=== PATIENT | female | born 1995 | race Caucasian/White ===

== ENCOUNTER 2017-09-21 09:07 | Emergency (ER) | payer OTHER ==
[2017-09-21 10:11] LABS: Basophils % (A) 0 %; Eosinophils % (A) 1 %; HCT 36.5 % (34.0-46.0); HGB 12.4 gm/dL (11.4-16.0); Lymphocytes # (A) 1.3 k/uL (1.0-4.8); Lymphocytes % (A) 17 %; MCH 29.1 pg (25.0-35.0); MCV 85.4 fL (80.0-100.0); Mean Platelet Volume 7.5; Monocytes # (A) 0.4 k/uL (0-1.0); Monocytes % (A) 5 %; Neutrophils # (A) 5.8 k/uL (1.3-7.7); Neutrophils % (A) 76 %; Platelet Count 185 k/uL (150-450); RBC 4.28 m/uL (3.80-5.40); RDW 12.4 % (11.5-15.5); WBC 7.6 k/uL (3.8-10.6)
--- NOTE | 2017-09-21 10:14 | ED ---
General Adult HPI - General Chief complaint: Vaginal Bleeding Stated complaint: 6wks preg, bleeding/cramping Time Seen by Provider: 09/21/17 09:44 Source: patient, RN notes reviewed Mode of arrival: ambulatory Limitations: no limitations - History of Present Illness Initial comments: Patient 22-year-old female who is approximately 6 weeks by last menstrual cycle presents emergency room today with chief complaint of vaginal spotting and lower abdominal cramping. She states symptoms started last night. Since mild spotting. States currently not spotting at this time. Does have some cramping lower abdomen. Denies any other complaints or symptoms. She is G1, P0. Patient denies any recent fever, chills, shortness of breath, chest pain , back pain, nausea or vomiting, numbness or tingling, dysuria or hematuria, constipation or diarrhea, headaches or visual changes, or any other complaints. - Related Data Home Medications Medication Instructions Recorded Confirmed Hju-Gnpc-Jwjnj Acid 1 cap PO DAILY 09/21/17 09/21/17 [-U Capsule (formulary)] Allergies Allergy/AdvReac Type Severity Reaction Status Date / Time No Known Allergies Allergy Verified 09/21/17 09:56 Review of Systems ROS Statement: Those systems with pertinent positive or pertinent negative responses have been documented in the HPI. ROS Other: All systems not noted in ROS Statement are negative. Past Medical History Past Medical History: No Reported History History of Any Multi-Drug Resistant Organisms: None Reported Past Surgical History: No Surgical Hx Reported Past Psychological History: No Psychological Hx Reported Smoking Status: Never smoker Past Alcohol Use History: Occasional Past Drug Use History: None Reported General Exam - General Exam Comments Initial Comments: General: The patient is awake and alert, in no distress, and does not appear acutely ill. Eye: Pupils are equal, round and reactive to light, extra-ocular movements are intact. No nystagmus. There is normal conjunctiva bilaterally. No signs of icterus. Ears, nose, mouth and throat: There are moist mucous membranes and no oral lesions. Neck: The neck is supple, there is no tenderness or JVD. Cardiovascular: There is a regular rate and rhythm. No murmur, rub or gallop is appreciated. Respiratory: Lungs are clear to auscultation, respirations are non-labored, breath sounds are equal. No wheezes, stridor, rales, or rhonchi. Gastrointestinal: Soft, non-distended, non-tender abdomen without masses or organomegaly noted. There is no rebound or guarding present. No CVA tenderness. Musculoskeletal: Normal ROM, no tenderness. Strength 5/5. Sensation intact. Pulses equal bilaterally 2+. Neurological: A&O x 3. CN II-XII intact, There are no obvious motor or sensory deficits. Coordination appears grossly intact. Speech is normal. Skin: Skin is warm and dry and no rashes or lesions are noted. Psychiatric: Cooperative, appropriate mood & affect, normal judgment. Limitations: no limitations Course Vital Signs 09/21/17 09:10 Temperature 100.0 F H Pulse Rate 103 H Respiratory 20 Rate Blood Pressure 122/72 O2 Sat by Pulse 99 Oximetry Medical Decision Making - Medical Decision Making Patient reexamined at this time shows no signs of distress. Repeat temperature is 98.7F. Patient ultrasound shows possible early intrauterine but no pole seen. Small subchorionic bleed. Patient labs been reviewed and are negative. Patient's beta hCG 14,000. Rh-. We'll give this been ordered and will be given to the patient. Was discussed with patient about early versus possible threatened miscarriage at this time. Advised patient to have repeat beta hCG in 2 days following up with her [employer] Dr. Gaffney. Advised return if any symptoms increase worsen. She states understanding and is in agreement. - Lab Data Result diagrams: 09/21/17 09:56 09/21/17 09:56 Lab Results 09/21/17 09/21/17 09/21/17 Range/Units 09:56 09:56 09:56 WBC 7.6 (3.8-10.6) k/uL RBC 4.28 (3.80-5.40) m/uL Hgb 12.4 (11.4-16.0) gm/dL Hct 36.5 (34.0-46.0) % MCV 85.4 (80.0-100.0) fL MCH 29.1 (25.0-35.0) pg MCHC 34.0 (31.0-37.0) g/dL RDW 12.4 (11.5-15.5) % Plt Count 185 (150-450) k/uL Neutrophils % 76 % Lymphocytes % 17 % Monocytes % 5 % Eosinophils % 1 % Basophils % 0 % Neutrophils # 5.8 (1.3-7.7) k/uL Lymphocytes # 1.3 (1.0-4.8) k/uL Monocytes # 0.4 (0-1.0) k/uL Eosinophils # 0.0 (0-0.7) k/uL Basophils # 0.0 (0-0.2) k/uL Sodium 140 (137-145) mmol/L Potassium 4.1 (3.5-5.1) mmol/L Chloride 106 (98-107) mmol/L Carbon Dioxide 21 L (22-30) mmol/L Anion Gap 13 mmol/L BUN 7 (7-17) mg/dL Creatinine 0.54 (0.52-1.04) mg/dL Est GFR (CKD-EPI)AfAm >90 (>60 ml/min/1.73 sqM) Est GFR (CKD-EPI)NonAf >90 (>60 ml/min/1.73 sqM) Glucose 88 (74-99) mg/dL Calcium 9.2 (8.4-10.2) mg/dL Total Bilirubin 0.5 (0.2-1.3) mg/dL AST 21 (14-36) U/L ALT 33 (9-52) U/L Alkaline Phosphatase 61 (38-126) U/L Total Protein 6.6 (6.3-8.2) g/dL Albumin 4.1 (3.5-5.0) g/dL HCG, Quant 48652.0 mIU/mL Urine Color Urine Appearance (Clear) Urine pH (5.0-8.0) Ur Specific [place] (1.001-1.035) Urine Protein (Negative) Urine Glucose (UA) (Negative) Urine Ketones (Negative) Urine Blood (Negative) Urine Nitrite (Negative) Urine Bilirubin (Negative) Urine Urobilinogen (<2.0) mg/dL Ur Leukocyte Esterase (Negative) Urine RBC (0-5) /hpf Urine WBC (0-5) /hpf Ur Squamous Epith Cells (0-4) /hpf Amorphous Sediment (None) /hpf Urine Mucus (None) /hpf Urine Sperm (None) /hpf Blood Type O Negative Blood Type Recheck No 09/21/17 Range/Units 09:56 WBC (3.8-10.6) k/uL RBC (3.80-5.40) m/uL Hgb (11.4-16.0) gm/dL Hct (34.0-46.0) % MCV (80.0-100.0) fL MCH (25.0-35.0) pg MCHC (31.0-37.0) g/dL RDW (11.5-15.5) % Plt Count (150-450) k/uL Neutrophils % % Lymphocytes % % Monocytes % % Eosinophils % % Basophils % % Neutrophils # (1.3-7.7) k/uL Lymphocytes # (1.0-4.8) k/uL Monocytes # (0-1.0) k/uL Eosinophils # (0-0.7) k/uL Basophils # (0-0.2) k/uL Sodium (137-145) mmol/L Potassium (3.5-5.1) mmol/L Chloride (98-107) mmol/L Carbon Dioxide (22-30) mmol/L Anion Gap mmol/L BUN (7-17) mg/dL Creatinine (0.52-1.04) mg/dL Est GFR (CKD-EPI)AfAm (>60 ml/min/1.73 sqM) Est GFR (CKD-EPI)NonAf (>60 ml/min/1.73 sqM) Glucose (74-99) mg/dL Calcium (8.4-10.2) mg/dL Total Bilirubin (0.2-1.3) mg/dL AST (14-36) U/L ALT (9-52) U/L Alkaline Phosphatase (38-126) U/L Total Protein (6.3-8.2) g/dL Albumin (3.5-5.0) g/dL HCG, Quant mIU/mL Urine Color Yellow Urine Appearance Cloudy H (Clear) Urine pH 8.0 (5.0-8.0) Ur Specific [place] 1.018 (1.001-1.035) Urine Protein Trace H (Negative) Urine Glucose (UA) Negative (Negative) Urine Ketones 2+ H (Negative) Urine Blood Moderate H (Negative) Urine Nitrite Negative (Negative) Urine Bilirubin Negative (Negative) Urine Urobilinogen <2.0 (<2.0) mg/dL Ur Leukocyte Esterase Negative (Negative) Urine RBC 1 (0-5) /hpf Urine WBC 1 (0-5) /hpf Ur Squamous Epith Cells 4 (0-4) /hpf Amorphous Sediment Rare H (None) /hpf Urine Mucus Rare H (None) /hpf Urine Sperm Rare (None) /hpf Blood Type Blood Type Recheck Disposition Clinical Impression: Threatened Disposition: HOME SELF-CARE Condition: Good Instructions: Threatened Miscarriage (ED) Additional Instructions: Please use medication as discussed. Please follow-up with family doctor in the next 2 days of symptoms have not improved. Please return to emergency room if the symptoms increase or worsen or for any other concerns. Referrals: Nonstaff,Physician [REFERRING] - 1-2 days Ivy Gaffney DO [Doctor of Osteopathic Medicine] - 1-2 days Time of Disposition: 11:29
[2017-09-21 10:22] LABS: ALT 33 U/L (9-52); AST 21 U/L (14-36); Albumin 4.1 g/dL (3.5-5.0); Alkaline Phosphatase 61 U/L (38-126); Anion Gap 13 mmol/L; Blood Urea Nitrogen 7 mg/dL (7-17); Calcium 9.2 mg/dL (8.4-10.2); Carbon Dioxide 21 mmol/L (22-30); Chloride 106 mmol/L (98-107); Glucose 88 mg/dL (74-99); Potassium 4.1 mmol/L (3.5-5.1); Sodium 140 mmol/L (137-145); Total Bilirubin 0.5 mg/dL (0.2-1.3); Total Protein 6.6 g/dL (6.3-8.2)
[2017-09-21 10:29] LABS: Amorphous Sediment,Urine Rare /hpf; Appearance,Urine Cloudy (Clear); Bilirubin,Urine Negative (Negative); Blood,Urine Moderate (Negative); Color,Urine Yellow; Glucose,Urine (UA) Negative (Negative); Ketones,Urine 2+ (Negative); Leukocyte Esterase,Urine Negative (Negative); Mucus,Urine Rare /hpf; Nitrite,Urine Negative (Negative); Protein,Urine Trace (Negative); RBC,Urine 1 /hpf (0-5); Specific Gravity,Urine 1.018 (1.001-1.035); Sperm,Urine Rare /hpf; Squamous Epithelial Cell,Urine 4 /hpf (0-4); Urobilinogen,Urine <2.0 mg/dL (<2.0); WBC,Urine 1 /hpf (0-5)
--- NOTE | 2017-09-21 10:50 | US ---
EXAMINATION TYPE: US OB <=14 wks transvag DATE OF EXAM: 09/21/2017 COMPARISON: NONE CLINICAL HISTORY: Pain. bleeding last night , positive home test. EXAM PERFORMED: Transvaginal (TV) and Transabdominal (TA) EXAM MEASUREMENTS: GESTATIONAL AGE / DATING Physician Established: not established Dates by LMP: (5 weeks/4 days) EDC: 05/20/2018 Dates by First Scan: No previous this is first scan Dates by Current Scan for: only gestational sac and yolk sac seen EDC: 05/21/2018 by gestational sac measurement only MATERNAL ANATOMY Uterus: 7.8 x 4.8 x 6.2cm Right Ovary: 3.9 x 1.9 x 3.7 cm Left Ovary: 4.1 x 2.3 x 3.8 cm Post CDS / Adnexa: trace free fluid Presence of subchorionic bleed: hypoechoic area adjacent to sac measures 1.7 x 0.5 x 2.2 cm GESTATION / SURVEY CRL: not identified, could be to early MSD: 1.3 cm (5 weeks/3 days) Yolk Sac (normal less than 6mm): 0.3 cm Date of LMP: 08/13/2017 Beta HcG (if available): not available at time of exam Appears as normal early developing IUP too early to see pole. IMPRESSION: Findings may reflect normal early intrauterine . Serial beta hCG and/or ultrasound is advise dAmanda
[2017-09-21] MEDS ORDERED: Rhogam IMMUNE GLOBULIN 1,500 UNIT/1 ML IM ONE (11:06)
[2017-09-21 11:44] VITALS: BP 111/59; PULSE 76; RESP 16; TEMP 97.8
== END 2017-09-21 12:03 | disposition home or self-care (01) ==
LOC: EC 09:07
DX: O20.0 Threatened abortion (principal); Z3A.01 Less than 8 weeks gestation of pregnancy
CPT/HCPCS: 36415; 86900; 86901; 80053; 85025; 86850; 81001; 84702; 87086; 76801; 76817; 99284; 96372; J2791

== ENCOUNTER → 2017-09-23 | Outpatient (CLI) | payer OTHER | END | disposition home or self-care (01) | LOC: LABWHC1 11:54 | PROVIDERS: ATTEND Physician Assistant | DX: O20.0 Threatened abortion (principal); Z3A.00 Weeks of gestation of pregnancy not specified | CPT/HCPCS: 36415; 84702 ==

== ENCOUNTER → 2017-09-25 | Outpatient (CLI) | payer OTHER | LOC: LABWHC1 09:47 | PROVIDERS: ATTEND Obstetrics & Gynecology | DX: O20.0 Threatened abortion (principal); Z3A.00 Weeks of gestation of pregnancy not specified | CPT/HCPCS: 36415; 84702 ==

== ENCOUNTER 2018-05-21 11:23 | Outpatient (CLI) | payer OTHER ==
[2018-05-21 13:23] VITALS: BP 142/87; PULSE 93; RESP 18; TEMP 97
--- NOTE | 2018-06-03 14:05 | P.MSEPDOC ---
Presenting Problems - Arrival Data Date of Arrival on Unit: 05/21/18 Time of Arrival on Unit: 11:23 Mode of Transport: Ambulatory Vital Signs - Temperature Temperature: 97.0 F Temperature Source: Temporal Artery Scan - Pulse Right Pulse Oximetery Pulse Rate: 93 Pulse Assessment Method: Pulse Oximetry - Respirations Respiratory Rate: 18 Oxygen Delivery Method: Room Air O2 Sat by Pulse Oximetry: 98 - Blood Pressure Right Arm Blood Pressure: 142/87 Blood Pressure Mean: 105 Blood Pressure Source: Automatic Cuff - Comment Vital Signs Comment: repeat BP 124/82 Medical Screen Scoring (Post) - Cervical Exam Dilation: 1-3 cm = 1 Membranes: Intact - Uterine Contractions Frequency: > or = 36 weeks =2 Duration: > 40 seconds = 2 Intensity: N/A - Maternal Vital Signs Maternal Temperature: N/A Maternal Blood Pressure: N/A Signs of Preeclampsia: N/A Maternal Respirations: N/A - Pain Assessment Pain Location and Character: Abdomen Pain Scale Used: Numeric (1 - 10) Pain Intensity: 6 Pain Management Goal: 2 Pain Description: *Acute, Cramping Pain Radiation Location: none Pain Frequency: Intermittent Pain Duration: 12 Pain Duration Units: Hours Pain Behavior: Vocalization Effects of Pain: none Pain Aggravating Factors: None Pharmacological Interventions: Discuss Pain Med Options - Maternal Trauma Maternal Trauma: N/A - Assessment Heart Rate: 145 Heart Rate - NICHD Category: Category I (Normal) = 0 NST: Reactive Position: N/A Station: N/A - Total Score Total Score (Post): 5 - Post Treatment Level of Risk Post Treatment Level of Risk: Low (0-5) Physician Notification (Post) - Physician Notified Physician Notified Date: 05/21/18 Physician Notified Time: 12:06 Physician/Practitioner Notified:: Dr Gaffney Spoke With: Dr Gaffney New Order Received: Yes - Notification Comment Comment: pt here for rule out ROM and contractions, amnisure negative, cervix 1 , 50%, high and the same after one hour. Disposition - Disposition Discharge Date: 05/21/18 Discharge Time: 13:15 I agree with the RN Medical Screening Exam: Yes Risk & Benefit of care provided described in d/c instruction: Yes Diagnosis: FALSE LABOR AT OR AFTER 37 COMPLETED WEEKS OF GESTATION
== END 2018-05-21 13:15 | disposition home or self-care (01) ==
LOC: FBPOP 11:23
PROVIDERS: ATTEND Obstetrics & Gynecology
DX: O47.1 False labor at or after 37 completed weeks of gestation (principal); Z3A.00 Weeks of gestation of pregnancy not specified
CPT/HCPCS: 59025; 99213

== ENCOUNTER 2018-05-22 06:52 | Outpatient (CLI) | payer OTHER ==
[2018-05-22 09:14] VITALS: BP 131/85; PULSE 92; RESP 18; TEMP 97.3
--- NOTE | 2018-05-22 12:48 | P.MSEPDOC ---
Presenting Problems - Arrival Data Date of Arrival on Unit: 05/22/18 Time of Arrival on Unit: 06:52 Mode of Transport: Ambulatory - Complaint OB-Reason for Admission/Chief Complaint: Possible Onset of Labor Comment: contractions began yesterday at 1am, pt was here yesterday for rule out labor, pt states the contractions have increased in intensity since then. Medical History - Information : 1 Para: 0 Term: 0 : 0 Abortions: Spontaneous or Elective: 0 Number of Living Children: 0 - Gestational Age Gestational Age by NEREYDA (wks/days): 40 Weeks and 2 Days - History Complications: GBS+ Review of Systems - Review of Systems Constitutional: No problems Breast: No problems ENT: No problems Cardiovascular: No problems Respiratory: No problems Gastrointestinal: No problems Genitourinary: No problems Musculoskeletal: No problems Neurological: No problems Skin: No problems Vital Signs - Temperature Temperature: 97.3 F Temperature Source: Temporal Artery Scan - Pulse Right Pulse Oximetery Pulse Rate: 92 Pulse Assessment Method: Pulse Oximetry - Respirations Respiratory Rate: 18 Oxygen Delivery Method: Room Air O2 Sat by Pulse Oximetry: 96 - Blood Pressure Right Arm Blood Pressure: 131/85 Blood Pressure Mean: 100 Blood Pressure Source: Automatic Cuff Medical Screen Scoring (Pre) - Cervical Exam Dilation: 1-3 cm = 1 Effacement: More than 50% = 2 Membranes: Intact - Uterine Contractions Frequency: > or = 36 weeks =2 Duration: > 40 seconds = 2 Intensity: N/A - Maternal Vital Signs Maternal Temperature: N/A Maternal Blood Pressure: N/A Signs of Preeclampsia: N/A Maternal Respirations: N/A - Pain Assessment Pain Location and Character: Abdomen Pain Scale Used: Numeric (1 - 10) Pain Intensity: 8 Pain Management Goal: 2 Pain Description: *Acute, Cramping Pain Radiation Location: none Pain Frequency: Intermittent Pain Duration: 1 Pain Duration Units: Days Pain Behavior: Facial Grimacing, Vocalization Effects of Pain: none Pain Aggravating Factors: None Pharmacological Interventions: Discuss Pain Med Options Non-Pharmacological Interventions: Reduce Environmental Stimuli - Maternal Trauma Maternal Trauma: N/A - Assessment Baseline FHR: 135 Heart Rate - NICHD Category: Category I (Normal) = 0 NST: Reactive Position: N/A Station: N/A - Total Score Total Score (Pre): 7 - Level of Risk Level of Risk: Medium (6-9) Physician Notification (Pre) - Physician Notified Physician Notified Date: 05/22/18 Physician Notified Time: 08:04 Physician/Practitioner Notifed:: Dr Gaffney Spoke With: Dr Gaffney New Order Received: Yes - Notification Comment Comment: Pt here for rule out labor, cervix 2, 80, -2, same after one hour and again after two hours. pt instructed to return when contractions become stronger , closer, or if water breaks, decrease in movement etc. Disposition - Disposition OB Disposition: Discharge to home Discharge Date: 05/22/18 Discharge Time: 09:10 I agree with the RN Medical Screening Exam: Yes Risk & Benefit of care provided described in d/c instruction: Yes Diagnosis: FALSE LABOR AT OR AFTER 37 COMPLETED WEEKS OF GESTATION
== END 2018-05-22 09:10 | disposition home or self-care (01) ==
LOC: FBPOP 06:52
PROVIDERS: ATTEND Obstetrics & Gynecology
DX: O47.1 False labor at or after 37 completed weeks of gestation (principal); Z3A.40 40 weeks gestation of pregnancy
CPT/HCPCS: 59025; 99213

== ENCOUNTER 2018-05-22 23:15 | Inpatient (IN) | payer OTHER ==
[2018-05-22 23:47] VITALS: RESP 16
[2018-05-23] MEDS ORDERED: LIDOCAINE 0.5% (PF) 5 MG/ML (50 ML SDV) SQ PRN (00:43)
[2018-05-23] MEDS ORDERED: TERBUTALINE 1 MG/ML VIAL SQ PRN (00:43)
[2018-05-23] MEDS ORDERED: METHYLERGONOVINE 0.2 MG/ML 1 ML AMP IM PRN (00:43)
[2018-05-23] MEDS ORDERED: OXYTOCIN 10 UNIT/ML 1 ML VIAL IM PRN (00:43)
[2018-05-23] MEDS ORDERED: CARBOPROST TROMETHAMINE 250 MCG/ML 1 ML AMP IM PRN (00:43)
[2018-05-23] MEDS ORDERED: LACTATED RINGERS 1,000 ML IV SCH (00:45)
[2018-05-23] MEDS ORDERED: OXYTOCIN 20 UNITS/1000 ML NS 1,000 ML IV SCH ×2 (00:45→12:45)
[2018-05-23] MEDS ORDERED: AMPICILLIN 2,000 MG in SODIUM CHLORIDE 0.9% 100 ML IVPB STA (01:04)
[2018-05-23 01:13] LABS: Basophils % (A) 0 %; Eosinophils % (A) 0 %; HCT 36.3 % (34.0-46.0); HGB 12.6 gm/dL (11.4-16.0); Lymphocytes # (A) 1.2 k/uL (1.0-4.8); Lymphocytes % (A) 9 %; MCH 31.3 pg (25.0-35.0); MCHC 34.8 g/dL (31.0-37.0); MCV 89.9 fL (80.0-100.0); Mean Platelet Volume 7.6; Monocytes # (A) 0.4 k/uL (0-1.0); Monocytes % (A) 3 %; Neutrophils # (A) 11.6 k/uL (1.3-7.7); Neutrophils % (A) 86 %; Platelet Count 172 k/uL (150-450); RBC 4.04 m/uL (3.80-5.40); RDW 13.6 % (11.5-15.5); WBC 13.4 k/uL (3.8-10.6)
[2018-05-23] MEDS ORDERED: ROPIVACAINE 5MG/ML 20ML VIAL ONE (01:21)
[2018-05-23] MEDS ORDERED: SODIUM CHLORIDE 0.9% 100 ML BAG ONE (01:21)
[2018-05-23] MEDS ORDERED: fentaNYL (PF) 50 MCG/ML 5 ML AMP ONE (01:21)
[2018-05-23] MEDS: LACTATED RINGERS 1,000 ML IV SCH ×2 (01:41→04:23)
[2018-05-23 01:52] VITALS: BMI 33.0
--- NOTE | 2018-05-23 04:28 | P.HPOB ---
History of Present Illness H&P Date: 05/23/18 Chief Complaint: Contractions This is a 23-year-old female 1 para 0 with an estimated date of confinement of 05/20/2018, estimated gestational age of 40-3/7 weeks, who presents to labor and delivery with complaints of contractions that began 2 days ago but became stronger enough and regular enough to come in this evening. She denied any rupture of membranes. She had been in triage twice before and didn't make any change beyond 2 cm. Upon arrival she was noted to be 3 cm. course has been uncomplicated. labs: Hepatitis B surface antigen-negative RPR-nonreactive Rubella-immune Blood type-O- HIV-nonreactive Hemoglobin-12.6 Toxoplasma-negative Random glucose-80 Obstetrical ultrasound-normal anatomy Group B streptococcus-positive Obstetrical history: Gynecologic history: No history of sexual transmitted diseases. 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 Review of Systems Constitutional: Denies chills, Denies fever Eyes: denies blurred vision, denies pain Ears, nose, mouth and throat: Denies headache, Denies sore throat Cardiovascular: Denies chest pain, Denies shortness of breath Respiratory: Denies cough Gastrointestinal: Reports abdominal pain (Contractions) Genitourinary: Reports pelvic pain, Reports Musculoskeletal: Reports low back pain Integumentary: Denies pruritus, Denies rash Neurological: Denies numbness, Denies weakness Psychiatric: Denies anxiety, Denies depression Past Medical History Past Medical History: No Reported History History of Any Multi-Drug Resistant Organisms: None Reported Past Surgical History: No Surgical Hx Reported Past Anesthesia/Blood Transfusion Reactions: No Reported Reaction Past Psychological History: No Psychological Hx Reported Smoking Status: Never smoker Past Alcohol Use History: Occasional Past Drug Use History: None Reported - Past Family History Father Family Medical History: No Reported History Medications and Allergies Home Medications Medication Instructions Recorded Confirmed Type Vvs-Dall-Gbsek Acid 1 cap PO DAILY 09/21/17 05/22/18 History [-U Capsule (formulary)] Allergies Allergy/AdvReac Type Severity Reaction Status Date / Time No Known Allergies Allergy Verified 05/22/18 23:16 Exam Osteopathic Statement: *. No significant issues noted on an osteopathic structural exam other than those noted in the History and Physical/Consult. Vital Signs Temp Pulse Resp BP 05/23/18 01:48 97.8 F 82 16 110/64 05/22/18 23:17 97.7 F 85 16 131/87 Intake and Output 05/22/18 05/22/18 05/23/18 14:59 22:59 06:59 Other: Weight 92.986 kg HEENT: Within normal limits Heart: Regular rate and rhythm Lungs: Clear to auscultation bilaterally Abdomen: Cervix: Currently is 6 cm/90%/-1 station. Artificial rupture of membranes is carried out with thin meconium noted. heart tones: Reactive Contractions: Every 4-5 minutes Extremities: Negative Homans Results Result Diagrams: 05/23/18 01:02 Abnormal Lab Results - Last 24 Hours (Table) 05/23/18 Range/Units 01:02 WBC 13.4 H (3.8-10.6) k/uL Neutrophils # 11.6 H (1.3-7.7) k/uL Assessment and Plan (1) 40 weeks gestation of Current Visit: Yes Status: Acute Code(s): Z3A.40 - 40 WEEKS GESTATION OF SNOMED Code(s): 98089115 (2) Meconium in amniotic fluid Current Visit: Yes Status: Acute Code(s): P96.83 - MECONIUM STAINING SNOMED Code(s): 244508735 (3) Group B Streptococcus carrier, +RV culture, currently Current Visit: Yes Status: Acute Code(s): O99.820 - STREPTOCOCCUS B CARRIER STATE COMPLICATING SNOMED Code(s): 6658825335342 Plan: Admission for active labor. Antibiotic prophylaxis for group B streptococcus. Epidural anesthesia. Expectant management.
--- NOTE | 2018-05-23 04:32 | P.MSEPDOC ---
Presenting Problems - Arrival Data Date of Arrival on Unit: 05/23/18 Time of Arrival on Unit: 00:40 Mode of Transport: Ambulatory - Complaint OB-Reason for Admission/Chief Complaint: Possible Onset of Labor Comment: ctx for 2 days Medical History - Information : 1 Para: 0 Term: 0 : 0 Abortions: Spontaneous or Elective: 0 Number of Living Children: 0 - Gestational Age Gestational Age by NEREYDA (wks/days): 40 Weeks and 3 Days - History Complications: GBS+ Review of Systems - Review of Systems Constitutional: No problems Breast: No problems ENT: No problems Cardiovascular: No problems Respiratory: No problems Gastrointestinal: No problems Genitourinary: No problems Musculoskeletal: No problems Neurological: No problems Skin: No problems Vital Signs - Temperature Temperature: 97.8 F Temperature Source: Temporal Artery Scan - Pulse Right Brachial Pulse Rate: 82 Pulse Assessment Method: Automatic Cuff - Respirations Respiratory Rate: 16 Oxygen Delivery Method: Room Air - Blood Pressure Right Arm Blood Pressure: 110/64 Blood Pressure Mean: 79 Blood Pressure Source: Automatic Cuff Medical Screen Scoring (Pre) - Cervical Exam Dilation: 1-3 cm = 1 Effacement: More than 50% = 2 Membranes: Intact - Uterine Contractions Frequency: > 5 minutes apart = 1 Duration: > 40 seconds = 2 - Pain Assessment Pain Location and Character: Abdomen Pain Scale Used: Numeric (1 - 10) Pain Intensity: 9 Pain Description: *Acute, Tightness Pain Frequency: Intermittent Pain Duration: 6 Pain Duration Units: Hours Pain Behavior: None Exhibited Pain Aggravating Factors: Contractions Non-Pharmacological Interventions: Position/Reposition, Reduce Environmental Stimuli - Assessment Baseline FHR: 125 Heart Rate - NICHD Category: Category II (Indeterminate) = 3 NST: Reactive - Total Score Total Score (Pre): 9 - Level of Risk Level of Risk: Medium (6-9) Physician Notification (Post) - Physician Notified Physician Notified Date: 05/23/18 Physician Notified Time: 00:42 Spoke With: Gulshan Martins Order Received: Yes (admit for labor, ampicillin, epidural) Disposition - Disposition OB Disposition: Admit, LDRP Suite I agree with the RN Medical Screening Exam: Yes Risk & Benefit of care provided described in d/c instruction: Yes Diagnosis: ENCOUNTER FOR FULL-TERM UNCOMPLICATED DELIVERY
[2018-05-23] MEDS: AMPICILLIN 1,000 MG in SODIUM CHLORIDE 0.9% 50 ML IVPB SCH ×3 (05:20→12:43)
[2018-05-23] MEDS ORDERED: LANOLIN CREAM 5 GM TUBE TOPICAL PRN (12:43)
[2018-05-23] MEDS ORDERED: HYDROCORTISONE 2.5% RECTAL CREAM 30 GM TUBE RECTAL PRN (12:43)
[2018-05-23] MEDS ORDERED: SIMETHICONE 80 MG CHEWABLE PO PRN (12:43)
[2018-05-23] MEDS ORDERED: diphenhydrAMINE 25 MG CAP PO PRN (12:43)
[2018-05-23] MEDS ORDERED: IBUPROFEN 600 MG TAB PO PRN (12:43)
[2018-05-23] MEDS ORDERED: WITCH HAZEL 1 EACH MED..PAD TOPICAL PRN (12:43)
[2018-05-23] MEDS ORDERED: diphenhydrAMINE 50 MG/ML 1 ML VIAL IVP PRN ×2 (12:43)
[2018-05-23] MEDS ORDERED: ZOLPIDEM 5 MG TAB PO PRN (12:43)
[2018-05-23] MEDS ORDERED: diphenhydrAMINE 50 MG CAP PO PRN (12:43)
[2018-05-23] MEDS ORDERED: BENZOCAINE/MENTHOL SPRAY 1 GM/SPRAY AEROSOL TOPICAL PRN (12:43)
[2018-05-23] MEDS ORDERED: ACETAMINOPHEN TAB 325 MG TAB PO PRN (12:43)
--- NOTE | 2018-05-23 12:43 | P.PROBDLV ---
Vaginal Delivery Note - . Vaginal Delivery Note: 23 year old presents at 40 weeks 3 days in labor. Her cervix is 3cm dilated , 80%effaced, -2 station. She is dionisio irregularly. heart tones 130 -135 with moderate variability and reactive. At 4:15 AM when she was 6 cm dilated, 90% effaced, -1 station, amniotomy was performed by Dr. Gaffney and thin meconium fluid was noted. She progressed to complete at 12:04 PM. She pushed, delivered a viable female infant over intact perineum under epidural anesthesia at 12:24 PM. Head delivered OA, nuchal cord 1 easily reduced, anterior shoulder delivered gentle downward guidance followed by posterior shoulder and rest of body. Nose and mouth bulb suctioned, cord clamped and cut, infant placed mother's abdomen. Apgars 9, 9, weight 7 lbs. 8 oz. Placenta delivered spontaneously, intact with three-vessel cord at 1228. Vagina, cervix, and perineum were inspected. Second-degree midline laceration was repaired with 3- 0 Vicryl. Estimated blood loss 150 mL. Mother and baby in stable condition.
[2018-05-23] MEDS ORDERED: Rhogam IMMUNE GLOBULIN 1,500 UNIT/1 ML IM ONE (17:48)
[2018-05-23] MEDS: SENNOSIDES-DOCUSATE SODIUM 1 EACH TAB PO SCH (19:54)
--- NOTE | 2018-05-24 08:18 | P.DS ---
Providers Date of admission: 05/23/18 00:48 Expected date of discharge: 05/24/18 Attending physician: Ivy Gaffney Primary care physician: Ivy Gaffney - Discharge Diagnosis(es) (1) 40 weeks gestation of Current Visit: Yes Status: Acute (2) Meconium in amniotic fluid Current Visit: Yes Status: Acute (3) Group B Streptococcus carrier, +RV culture, currently Current Visit: Yes Status: Acute Hospital Course: This is a 23-year-old female 1 para 0 at 40-3/7 weeks who presented in early active labor. She underwent oxytocin augmentation of labor and artificial rupture membranes with thin meconium noted. She delivered vaginally a viable female on 05/23/2018. Her course has been essentially uncomplicated. Lochia is decreasing. Pain is fairly well controlled with ibuprofen. She is asked feeding. Vital signs are stable. Abdomen is soft with fundus firm and nontender. Extremities show negative Homans. Impression is status post vaginal delivery day #1. Plan is to discharge home today. Routine instructions are given. She is advised to follow-up in the office in 6 weeks for a check. She will be given a prescription for a breast pump and ibuprofen. She is advised to call the office if she has any further questions or concerns prior to her appointment time. Procedures: Oxytocin augmentation of labor Spontaneous vaginal delivery of a viable female on 05/23/2018 Patient Condition at Discharge: Stable Plan - Discharge Summary New Discharge Prescriptions: New Ibuprofen [Motrin] 600 mg PO Q6HR PRN #60 tab PRN Reason: Mild Pain Or Fever >= 100.5 Continue Afl-Ckfi-Ouobk Acid [-U Capsule (formulary)] 1 cap PO DAILY Discharge Medication List Zqg-Rtfx-Pnpev Acid [-U Capsule (formulary)] 1 cap PO DAILY [History] Ibuprofen [Motrin] 600 mg PO Q6HR PRN #60 tab 05/24/18 [Rx] Follow up Appointment(s)/Referral(s): Ivy Gaffney DO [Primary Care Provider] - 6 Weeks Activity/Diet/Wound Care/Special Instructions: Instructions 1. Do not begin any exercise program for 3 weeks. 2. Do not resume sexual relations for 3 weeks or longer if uncomfortable. 3. You may take tub baths or showers at any time. 4. You may use tampons if desired after 3 weeks. 5. Keep the area of episiotomy (stitches) clean and dry. 6. If you are not nursing, wear a good fitting, supportive bra during the day and limit fluid intake for at least 1 week to prevent breast engorgement. 7. Call the office, [phone], within the next week to make appointment for your 6 week checkup if it has not already been made. 8. Report any of the following occurrences to the doctor promptly: a. Heavy, excessive bleeding b. Chills, fever c. Burning or frequency of urination d. Pain or redness and breasts if nursing e. Increasing pain or swelling in episiotomy (stitches). In addition to the above instructions, the following additional should be followed: 1. No heavy lifting or straining (exercising) until after 6 week checkup. 2. Keep abdominal incision clean and dry: You may wear a dressing if more comfortable. 3. Make office appointment for 10 days after going home or as instructed by her doctor. Discharge Disposition: HOME SELF-CARE
[2018-05-24] MEDS: SENNOSIDES-DOCUSATE SODIUM 1 EACH TAB PO SCH (08:19)
[2018-05-24 08:37] VITALS: BP 122/83; PULSE 83; TEMP 97.8
== END 2018-05-24 13:40 | disposition home or self-care (01) | DRG 807 ==
LOC: FBPOP 23:15 → 4FBP 05-23 00:48
PROVIDERS: ADMIT Obstetrics & Gynecology; ATTEND Obstetrics & Gynecology
PROC: 10E0XZZ Delivery of Products of Conception, External Approach (ICD-10-PCS; principal; 2018-05-23)
PROC: 0KQM0ZZ Repair Perineum Muscle, Open Approach (ICD-10-PCS; 2018-05-23)
PROC: 00HU33Z Insertion of Infusion Device into Spinal Canal, Percutaneous Approach (ICD-10-PCS; 2018-05-23)
PROC: 3E0R3BZ Introduction of Anesthetic Agent into Spinal Canal, Percutaneous Approach (ICD-10-PCS; 2018-05-23)
DX: O77.0 Labor and delivery complicated by meconium in amniotic fluid (principal); Z37.0 Single live birth; O69.81X0 Labor and delivery complicated by cord around neck, without compression, not applicable or unspecified; O70.1 Second degree perineal laceration during delivery; O99.824 Streptococcus B carrier state complicating childbirth; Z3A.40 40 weeks gestation of pregnancy
CPT/HCPCS: 59025; 85025; 85461; 86850; 86900; 86901; 99213

== ENCOUNTER 2020-07-23 06:36 | Inpatient (IN) | payer BC ==
[2020-07-23] MEDS ORDERED: LIDOCAINE 0.5% (PF) 5 MG/ML (50 ML SDV) SQ PRN (06:57)
[2020-07-23] MEDS ORDERED: CARBOPROST TROMETHAMINE 250 MCG/ML 1 ML AMP IM PRN (06:57)
[2020-07-23] MEDS ORDERED: METHYLERGONOVINE 0.2 MG/ML 1 ML AMP IM PRN (06:57)
[2020-07-23] MEDS ORDERED: TERBUTALINE 1 MG/ML VIAL SQ PRN (06:57)
[2020-07-23] MEDS ORDERED: OXYTOCIN 10 UNIT/ML 1 ML VIAL IM PRN (06:57)
[2020-07-23] MEDS: LACTATED RINGERS 1,000 ML IV SCH ×3 (07:38→14:19)
[2020-07-23 07:40] LABS: Basophils % (A) 0 %; Eosinophils % (A) 0 %; HCT 36.3 % (34.0-46.0); HGB 12.8 gm/dL (11.4-16.0); Lymphocytes # (A) 1.2 k/uL (1.0-4.8); Lymphocytes % (A) 9 %; MCH 31.9 pg (25.0-35.0); MCHC 35.4 g/dL (31.0-37.0); MCV 90.1 fL (80.0-100.0); Mean Platelet Volume 7.9; Monocytes # (A) 0.3 k/uL (0-1.0); Monocytes % (A) 3 %; Neutrophils # (A) 11.4 k/uL (1.3-7.7); Neutrophils % (A) 87 %; Platelet Count 146 k/uL (150-450); RBC 4.03 m/uL (3.80-5.40); RDW 13.1 % (11.5-15.5); WBC 13.1 k/uL (3.8-10.6)
[2020-07-23] MEDS ORDERED: AMPICILLIN 2,000 MG in SODIUM CHLORIDE 0.9% 100 ML IVPB STA (08:19)
--- NOTE | 2020-07-23 08:33 | P.HPOB ---
History of Present Illness H&P Date: 07/23/20 Chief Complaint: Contractions This is a 25-year-old female 2 para 1 with an estimated date of confinement of 07/20/2020 with a gestational age of 40-3/7 weeks who presents to labor and delivery with complaints of contractions that began at approximately 1 AM this morning. She denied any rupture membranes. course has been essentially uncomplicated. 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 labs: GC/Chlamydia/Trichomonas-negative Hepatitis B surface antigen-negative RPR-nonreactive Rubella-immune Blood type-O- Antibody screen-negative Hemoglobin-12.6 Random glucose-91 Obstetrical ultrasound-normal anatomy one hour Glucola-109 RhoGAM is given at 28 weeks Group B streptococcus-negative Obstetrical history: . History of 1 vaginal delivery at term with no com plications. [employer] SAL[employer] history: No history of sexual transmitted diseases Social history: She is single. She works as a nurse aide. Review of Systems Constitutional: Denies chills, Denies fever Eyes: denies blurred vision, denies pain Ears, nose, mouth and throat: Denies headache, Denies sore throat Cardiovascular: Denies chest pain, Denies shortness of breath Respiratory: Denies cough Gastrointestinal: Reports abdominal pain (Contractions) Genitourinary: Reports pelvic pain, Reports Musculoskeletal: Reports low back pain Integumentary: Denies pruritus, Denies rash Neurological: Denies numbness, Denies weakness Psychiatric: Denies anxiety, Denies depression Past Medical History Past Medical History: No Reported History History of Any Multi-Drug Resistant Organisms: None Reported Past Surgical History: No Surgical Hx Reported Past Anesthesia/Blood Transfusion Reactions: No Reported Reaction Past Psychological History: No Psychological Hx Reported Smoking Status: Never smoker Past Alcohol Use History: Occasional Past Drug Use History: None Reported - Past Family History Father Family Medical History: No Reported History Medications and Allergies Home Medications Medication Instructions Recorded Confirmed Type RX: Zhg-Lxfz-Fixlz Acid 1 cap PO DAILY 09/21/17 07/23/20 History [-U Capsule (formulary)] Allergies Allergy/AdvReac Type Severity Reaction Status Date / Time No Known Allergies Allergy Verified 07/23/20 06:46 Exam Osteopathic Statement: *. No significant issues noted on an osteopathic structural exam other than those noted in the History and Physical/Consult. Vital Signs Temp Pulse Resp BP Pulse Ox 07/23/20 07:33 98.0 F 77 16 122/78 98 07/23/20 06:47 96.5 F L 84 16 128/83 99 Intake and Output 07/22/20 07/23/20 07/23/20 22:59 06:59 14:59 Other: Weight 90.718 kg 90.718 kg HEENT: Within normal limits Heart: Regular rate and rhythm Lungs: Clear to auscultation bilaterally Abdomen: Cervix: Initially in triage was 3/50%/-2 station. Currently she is 5 cm/60-70%/-2 station. Artificial rupture membranes is carried out with thick meconium noted. heart tones are reactive with category 1 tracing. Contractions: 2-5 minutes Extremities: Negative Homans Results Result Diagrams: 07/23/20 07:28 Abnormal Lab Results - Last 24 Hours (Table) 07/23/20 Range/Units 07:28 WBC 13.1 H (3.8-10.6) k/uL Plt Count 146 L (150-450) k/uL Neutrophils # 11.4 H (1.3-7.7) k/uL Assessment and Plan (1) 40 weeks gestation of Current Visit: No Status: Acute Code(s): Z3A.40 - 40 WEEKS GESTATION OF SNOMED Code(s): 93374515 (2) Group B Streptococcus carrier, +RV culture, currently Current Visit: No Status: Acute Code(s): O99.820 - STREPTOCOCCUS B CARRIER STATE COMPLICATING SNOMED Code(s): 1223267377102 (3) Meconium in amniotic fluid Current Visit: No Status: Acute Code(s): P96.83 - MECONIUM STAINING SNOMED Code(s): 520588979 Plan: Admission for active labor. Epidural anesthesia. Expectant management. Will treat with antibiotics due to history of group B streptococcus carrier. PLANER HAND will be notified to be present for delivery due to thick meconium.
[2020-07-23] MEDS ORDERED: fentaNYL (PF) 50 MCG/ML 5 ML AMP ONE (08:42)
[2020-07-23] MEDS ORDERED: SODIUM CHLORIDE 0.9% 100 ML BAG ONE (08:42)
[2020-07-23] MEDS ORDERED: ROPIVACAINE 5MG/ML 20ML VIAL ONE (08:42)
--- NOTE | 2020-07-23 10:46 | P.MSEPDOC ---
Presenting Problems - Arrival Data Date of Arrival on Unit: 07/23/20 Time of Arrival on Unit: 06:51 Mode of Transport: Ambulatory - Complaint OB-Reason for Admission/Chief Complaint: Possible Onset of Labor Comment: patient arrived to triages stating that she has been dionisio every 5 minutes since 0100 on 07/23/2020, patient denies any bleeding or leaking of fluid. Medical History - Information : 2 Para: 1 Term: 1 : 0 Abortions: Spontaneous or Elective: 0 Number of Living Children: 1 - Gestational Age Gestational Age by NEREYDA (wks/days): 92 Weeks and 5 Days Review of Systems - Review of Systems Constitutional: No problems Breast: No problems ENT: No problems Cardiovascular: No problems Respiratory: No problems Gastrointestinal: No problems Genitourinary: No problems Musculoskeletal: No problems Neurological: No problems Skin: No problems Vital Signs - Temperature Temperature: 98.0 F - Pulse Right Brachial Pulse Rate: 77 Pulse Assessment Method: Pulse Oximetry - Respirations Respiratory Rate: 16 Oxygen Delivery Method: Room Air O2 Sat by Pulse Oximetry: 98 - Blood Pressure Right Arm Blood Pressure: 122/78 Blood Pressure Mean: 92 Blood Pressure Source: Automatic Cuff Medical Screen Scoring (Pre) - Cervical Exam Dilation: 1-3 cm = 1 Effacement: Exam Deferred Membranes: Intact - Uterine Contractions Frequency: N/A Duration: N/A Intensity: N/A - Maternal Vital Signs Maternal Temperature: N/A - Maternal Trauma Maternal Trauma: N/A - Assessment - Baby A Baseline FHR: 145 Heart Rate - NICHD Category: Category I (Normal) = 0 NST: Reactive Position: N/A Station: N/A - Total Score - Baby A Total Score - Baby A: 1 - Total Score - Baby B Total Score - Baby B: 1 - Total Score - Baby C Total Score - Baby C: 1 - Level of Risk - Baby A Level of Risk - Baby A: Low (0-5) - Level of Risk - Baby B Level of Risk - Baby B: Low (0-5) - Level of Risk - Baby C Level of Risk - Baby C: Low (0-5) Physician Notification (Pre) - Physician Notified Physician Notified Date: 07/23/20 Physician Notified Time: 06:59 New Order Received: Yes - Notification Comment Comment: Admit patient to unit Disposition - Disposition OB Disposition: Admit Discharge Date: 07/23/20 Discharge Time: 07:00 I agree with the RN Medical Screening Exam: Yes Case reviewed; plan agreed upon as documented in EMR&OBIX.: Yes Diagnosis: ENCOUNTER FOR FULL-TERM UNCOMPLICATED DELIVERY
[2020-07-23] MEDS: AMPICILLIN 1,000 MG in SODIUM CHLORIDE 0.9% 50 ML IVPB SCH ×2 (12:43→17:38)
[2020-07-23] MEDS ORDERED: OXYTOCIN 30 UNITS/500 ML NS 30 UNIT in SALINE 1 500ML.BAG IV SCH ×2 (14:45→17:45)
--- NOTE | 2020-07-23 16:30 | P.PROBDLV ---
Vaginal Delivery Note - . Vaginal Delivery Note: The patient progressed to approximately 8-1/2-9 cm after oxytocin augmentation of labor. She did receive epidural anesthesia. She had been at 8 for quite some time. When I came to check her she had a very stretchy cervix. I had her push one time and the cervix completely resolved to complete. She pushed for a couple pushes and 's head came to a crown. With one further push, the 's head delivered across the perineum followed by the anterior shoulder. She was then instructed to stop pushing and nose and mouth were bulb suctioned at the perineum. With one further push, the remainder the infant easily delivered and was placed on mother's abdomen. Bulb suctioning was continued. BIN CLEANER was present for delivery along with pediatric nursing staff. The was taken to warmer for evaluation after cord was clamped and cut. A viable female infant was noted with scores of 7 at 1 minute and 8 at 5 minutes and infant weight of 8 lbs. 4 oz. Placenta delivered shortly thereafter, intact, with a three-vessel cord. Uterus contracted well after oxytocin was given and uterine massage was carried out. Inspection of the perineum revealed a very tiny first-degree perineal laceration that was noted to be hemostatic. No stitching was performed. Estimated blood loss is approximately 150 mL's. Mother is in stable condition. Baby is taken to level I nursery for observation.
[2020-07-23] MEDS ORDERED: SIMETHICONE 80 MG CHEWABLE PO PRN (17:40)
[2020-07-23] MEDS ORDERED: BENZOCAINE/MENTHOL SPRAY 1 GM/SPRAY AEROSOL TOPICAL PRN (17:40)
[2020-07-23] MEDS ORDERED: LANOLIN CREAM 5 GM TUBE TOPICAL PRN (17:40)
[2020-07-23] MEDS ORDERED: ACETAMINOPHEN TAB 325 MG TAB PO PRN (17:40)
[2020-07-23] MEDS ORDERED: diphenhydrAMINE 50 MG CAP PO PRN (17:40)
[2020-07-23] MEDS ORDERED: diphenhydrAMINE 50 MG/ML 1 ML VIAL IVP PRN ×2 (17:40)
[2020-07-23] MEDS ORDERED: diphenhydrAMINE 25 MG CAP PO PRN (17:40)
[2020-07-23] MEDS ORDERED: ZOLPIDEM 5 MG TAB PO PRN (17:40)
[2020-07-23] MEDS ORDERED: HYDROCORTISONE 2.5% RECTAL CREAM 30 GM TUBE RECTAL PRN (17:40)
[2020-07-23] MEDS: SENNOSIDES-DOCUSATE SODIUM 1 EACH TAB PO SCH (23:09)
[2020-07-24] MEDS: IBUPROFEN 600 MG TAB PO PRN ×4 (01:03→22:45)
[2020-07-24 05:21] LABS: Basophils % (A) 0 %; Eosinophils % (A) 0 %; HCT 32.9 % (34.0-46.0); HGB 11.6 gm/dL (11.4-16.0); Lymphocytes # (A) 1.3 k/uL (1.0-4.8); Lymphocytes % (A) 11 %; MCH 32.1 pg (25.0-35.0); MCHC 35.2 g/dL (31.0-37.0); MCV 91.3 fL (80.0-100.0); Mean Platelet Volume 8.9; Monocytes # (A) 0.5 k/uL (0-1.0); Monocytes % (A) 4 %; Neutrophils # (A) 9.5 k/uL (1.3-7.7); Neutrophils % (A) 83 %; Platelet Count 143 k/uL (150-450); RDW 13.1 % (11.5-15.5); WBC 11.6 k/uL (3.8-10.6)
--- NOTE | 2020-07-24 08:25 | P.DS ---
Providers Date of admission: 07/23/20 07:07 Expected date of discharge: 07/24/20 Attending physician: Ivy Gaffney Primary care physician: Stated None - Discharge Diagnosis(es) (1) 40 weeks gestation of Current Visit: No Status: Acute (2) Group B Streptococcus carrier, +RV culture, currently Current Visit: No Status: Acute (3) Meconium in amniotic fluid Current Visit: No Status: Acute Hospital Course: This is a 25-year-old female 2 para 1 with an estimated date of confinement of 07/20/2020, estimated gestational age of 40-3/7 weeks, who presented to labor and delivery with complaints of contractions. She was found to be in active labor. Artificial rupture membranes revealed thick meconium fluid. She did undergo oxytocin augmentation of labor and epidural anesthesia. She delivered vaginally a viable female infant on 07/23/2020 with scores of 7 at 1 minute and 8 at 5 minutes and weight of 8 lbs. 4 oz. Her course has been essentially uncomplicated. Her baby did go to level I nursery for observation for approximately 5 hours but is back in the room now. She is breast-feeding. Lochia is decreasing. Her pain is fairly well controlled with ibuprofen. Vital signs are stable. Abdomen is soft with fundus firm and nontender. Extremities show negative Homans. Impression is status post vaginal delivery day #1. Plan is to discharge home later today as long as baby is able to go home. Routine instructions are given. She is advised to follow up in the office in 6 weeks for a check. She is advised to call the office if she has any further questions or concerns prior to her appointment time. She will receive a prescription for ibuprofen. She states she does have a breast pump at home. Procedures: Spontaneous vaginal delivery of a viable female infant on 07/23/2020 Patient Condition at Discharge: Stable Plan - Discharge Summary New Discharge Prescriptions: New Ibuprofen [Motrin] 600 mg PO Q6HR PRN #60 tab PRN Reason: Mild Pain Or Fever >= 100.5 Continue Hjp-Nvhg-Ihttm Acid [-U Capsule (formulary)] 1 cap PO DAILY Discharge Medication List Gsx-Yzlg-Hydsf Acid [-U Capsule (formulary)] 1 cap PO DAILY 09/21/17 [History] Ibuprofen [Motrin] 600 mg PO Q6HR PRN #60 tab 07/24/20 [Rx] Follow up Appointment(s)/Referral(s): Ivy Gaffney DO [Doctor of Osteopathic Medicine] - 6 Weeks Activity/Diet/Wound Care/Special Instructions: Instructions 1. Do not begin any exercise program for 3 weeks. 2. Do not resume sexual relations for 3 weeks or longer if uncomfortable. 3. You may take tub baths or showers at any time. 4. You may use tampons if desired after 3 weeks. 5. Keep the area of episiotomy (stitches) clean and dry. 6. If you are not nursing, wear a good fitting, supportive bra during the day and limit fluid intake for at least 1 week to prevent breast engorgement. 7. Call the office, [phone], within the next week to make appointment for your 6 week checkup if it has not already been made. 8. Report any of the following occurrences to the doctor promptly: a. Heavy, excessive bleeding b. Chills, fever c. Burning or frequency of urination d. Pain or redness and breasts if nursing e. Increasing pain or swelling in episiotomy (stitches). In addition to the above instructions, the following additional should be followed: 1. No heavy lifting or straining (exercising) until after 6 week checkup. 2. Keep abdominal incision clean and dry: You may wear a dressing if more comfortable. 3. Make office appointment for 10 days after going home or as instructed by her doctor. Discharge Disposition: HOME SELF-CARE
[2020-07-24] MEDS: SENNOSIDES-DOCUSATE SODIUM 1 EACH TAB PO SCH ×2 (09:20→20:34)
[2020-07-24] MEDS: PRENATAL VIT-IRON-FOLIC ACID 1 EACH CAP PO SCH (11:51)
[2020-07-24] MEDS: AMPICILLIN 1,000 MG in SODIUM CHLORIDE 0.9% 50 ML IVPB SCH ×2 (20:34→20:35)
[2020-07-24] MEDS: LACTATED RINGERS 1,000 ML IV SCH (20:35)
[2020-07-25] MEDS: PRENATAL VIT-IRON-FOLIC ACID 1 EACH CAP PO SCH ×2 (04:06→07:57)
[2020-07-25] MEDS: IBUPROFEN 600 MG TAB PO PRN ×2 (06:56→19:42)
[2020-07-25] MEDS: SENNOSIDES-DOCUSATE SODIUM 1 EACH TAB PO SCH ×2 (08:00→22:09)
[2020-07-25 08:20] VITALS: RESP 18
[2020-07-25 17:01] VITALS: BP 138/88; PULSE 61; TEMP 97.9
== END 2020-07-25 23:38 | disposition home or self-care (01) | DRG 806 ==
LOC: FBPOP 06:36 → 4FBP 07:07
PROVIDERS: ADMIT Obstetrics & Gynecology; ATTEND Obstetrics & Gynecology
PROC: 10907ZC Drainage of Amniotic Fluid, Therapeutic from Products of Conception, Via Natural or Artificial Opening (ICD-10-PCS; principal; 2020-07-23)
PROC: 3E0R3NZ Introduction of Analgesics, Hypnotics, Sedatives into Spinal Canal, Percutaneous Approach (ICD-10-PCS; principal; 2020-07-23)
PROC: 3E033VJ Introduction of Other Hormone into Peripheral Vein, Percutaneous Approach (ICD-10-PCS; principal; 2020-07-23)
PROC: 00HU33Z Insertion of Infusion Device into Spinal Canal, Percutaneous Approach (ICD-10-PCS; principal; 2020-07-23)
PROC: 10E0XZZ Delivery of Products of Conception, External Approach (ICD-10-PCS; principal; 2020-07-23)
PROC: 3E0334Z Introduction of Serum, Toxoid and Vaccine into Peripheral Vein, Percutaneous Approach (ICD-10-PCS; 2020-07-24)
DX: O77.0 Labor and delivery complicated by meconium in amniotic fluid (principal); O36.0930 Maternal care for other rhesus isoimmunization, third trimester, not applicable or unspecified; Z37.0 Single live birth; Z3A.40 40 weeks gestation of pregnancy; O70.0 First degree perineal laceration during delivery
CPT/HCPCS: 59025; 85025; 85461; 86850; 86900; 86901; 99213